=== PATIENT | female | born 1960 | race Caucasian/White ===

== ENCOUNTER 2016-12-15 08:30 | Outpatient (CLI) | payer BC ==
--- NOTE | 2016-12-15 13:01 | MRI ---
RIGHT SHOULDER MRI WITHOUT CONTRAST: HISTORY: Right shoulder pain, chronic pain for 2.5 years. COMPARISON: None. TECHNIQUE: Multiplanar, multisequence MRI right shoulder without contrast. FINDINGS: BICEPS TENDON: The extraarticular biceps tendon is normal. Mild intraarticular tendonosis. GLENOID LABRUM: Mild degenerative signal in the superior labrum. There is a tear of the anterior labrum from approx imately 1 o'clock to 3 o'clock with paralabral cyst formation. BONES: Mild degenerative disease of the acromioclavicular joint. There is a subchondral cyst formation of the anterior and inferior glenoid from 3 o'clock to 5 o'clock. ROTATOR CUFF: Moderate tendinosis of the supraspinatus and infraspinatus tendons with thickening and abnormal inc reased fluid signal. No full-thickness perforation. SOFT TISSUES: Mild edema within the subacromial/subdeltoid bursa. Muscle signal and bulk is normal. Cartilage evaluation is limited without intraarticular contrast. IMPRESSION: 1. Moderate tendinosis of the rotator cuff without full-thickness perforation or significant partia l thickness tearing. 2. Moderate subacromial/subdeltoid bursitis. 3. Degenerative fraying of the superior labrum along with a nondisplaced tear of the anterior labru m from 1 o'clock to 3 o'clock with paralabral cyst formation as well as subchondral cyst of the jung cent glenoid. 4. Moderate subacromial/subdeltoid bursitis. POS: [facility]
== END 2016-12-15 08:31 | disposition home or self-care (01) ==
LOC: BURMRI 08:30
PROVIDERS: ATTEND Family Medicine
DX: M25.511 Pain in right shoulder (principal); M75.101 Unspecified rotator cuff tear or rupture of right shoulder, not specified as traumatic; M75.51 Bursitis of right shoulder